=== PATIENT | male | born 2005 | race Caucasian/White ===

== ENCOUNTER 2023-10-09 01:02 | Emergency (ER) | payer OTHER ==
[2023-10-09] MEDS: Ibuprofen 600 MG Tab PO ONE (01:31)
[2023-10-09] MEDS: Cyclobenzaprine 10 MG Tab PO ONE (01:31)
== END 2023-10-09 02:28 | disposition home or self-care (01) ==
LOC: MW.ED 01:02
DX: S09.90XA Unspecified injury of head, initial encounter (principal); Z79.899 Other long term (current) drug therapy; Z75.8 Other problems related to medical facilities and other health care; V49.40XA Driver injured in collision with unspecified motor vehicles in traffic accident, initial encounter
CPT/HCPCS: 70450; 72125; 99284; A9270; 99283